=== PATIENT | female | born 1990 | race African-American/Black ===

== ENCOUNTER 2018-11-08 15:17 | Emergency (ER) | payer SELFPAY ==
[2018-11-08 15:56] LABS: Urine Bacteria 20-50 /HPF (<20); Urine Culture Reflex Order REFLEXED; Urine RBC <5 /HPF (NONE SEEN)
--- NOTE | 2018-11-08 16:09 | ER ---
Nurse's Notes [facility] Name: Laine Chaney Age: 27 yrs Sex: Female : 1990 Arrival Date: 11/08/2018 Time: 15:18 Bed 15 Private MD: Diagnosis: Herpesviral [herpes simplex] infections;Urinary tract infection, site not specified; state Presentation: 11/08 15:24 Presenting complaint: Patient states: vaginal pain, discharge, burning with urination la1 since friday. Transition of care: patient was not received from another setting of care. Onset of symptoms was November 08, 2018. Risk Assessment: Do you want to hurt yourself or someone else? Patient reports no desire to harm self or others. Initial Sepsis Screen: Does the patient meet any 2 criteria? No. Patient's initial sepsis screen is negative. Does the patient have a suspected source of infection? No. Patient's initial sepsis screen is negative. Care prior to arrival: None. 15:24 Method Of Arrival: Ambulatory la1 15:24 Acuity: DOC 4 la1 Triage Assessment: 16:27 General: Appears in no apparent distress. Behavior is calm. iw 16:28 Pain: Complains of pain in groin. iw PROSTHETIC DENTIST: 15:25 LMP 10/12/2018 la1 16:11 0, 0, Living 0, LMP 10/12/2018 kb Historical: - Allergies: 15:24 No Known Allergies; la1 - Home Meds: 15:24 None [Active]; la1 - PMHx: 15:24 None; la1 - PSHx: 15:24 None; la1 - Immunization history:: Adult Immunizations up to date. - Social history:: Smoking status: Patient/guardian denies using tobacco. - Ebola Screening: : No symptoms or risks identified at this time. Screenin:26 Abuse screen: Denies threats or abuse. Denies injuries from another. Nutritional iw screening: No deficits noted. Tuberculosis screening: No symptoms or risk factors identified. Fall Risk None identified. Assessment: 15:45 General: Appears in no apparent distress. comfortable, Behavior is calm, cooperative, aj1 appropriate for age. Pain: Complains of pain in pelvis. Neuro: Level of Consciousness is awake, alert, obeys commands, Oriented to person, place, time, situation. Cardiovascular: Patient's skin is warm and dry. Respiratory: Airway is patent Respiratory effort is even, unlabored, Respiratory pattern is regular, symmetrical. GI: No signs and/or symptoms were reported involving the gastrointestinal system. : Reports burning with urination, urinary frequency. EENT: No signs and/or symptoms were reported regarding the EENT system. Derm: No signs and/or symptoms reported regarding the dermatologic system. Skin is pink, warm \T\ dry. normal. Musculoskeletal: No signs and/or symptoms reported regarding the musculoskeletal system. Circulation, motion, and sensation intact. 16:26 Reassessment: Patient appears in no apparent distress at this time. Patient and/or iw family updated on plan of care and expected duration. Pain level reassessed. Patient is alert, oriented x 3, equal unlabored respirations, skin warm/dry/pink. Vital Signs: 15:25 BP 151 / 69; Pulse 82; Resp 16; Temp 98.1; Pulse Ox 98% on R/A; Weight 81.65 kg; Height la1 5 ft. 6 in. (167.64 cm); 15:25 Body Mass Index 29.05 (81.65 kg, 167.64 cm) la1 ED Course: 15:18 Patient arrived in ED. as 15:21 [facility] kb 15:21 Sukhdev Clifton MD is Attending Physician. kb 15:24 Triage completed. la1 15:25 Arm band placed on right wrist. la1 15:32 Norma Corbett, NASREEN is Primary Nurse. aj1 16:27 No provider procedures requiring assistance completed. iw 16:28 Patient has correct armband on for positive identification. iw 16:28 Patient did not have IV access during this emergency room visit. iw Administered Medications: 16:26 Drug: Valtrex 1000 mg Route: PO; iw 16:26 Drug: Macrobid 100 mg Route: PO; iw Outcome: 16:08 Discharge ordered by . kb 16:27 Discharged to home ambulatory. iw 16:27 Condition: good 16:27 Discharge instructions given to patient, Instructed on discharge instructions, follow up and referral plans. medication usage, Demonstrated understanding of instructions, follow-up care, medications, Prescriptions given X 2. 16:28 Patient left the ED. iw Signatures: Mara Lomas FNP-C FNP-Ckb Norma Corbett, RN RN aj1 Cora Agee Irene, RN RN iw Mulugeta Lee RN RN la1
--- NOTE | 2018-11-08 16:09 | EDPHYS ---
Physician [facility] Name: Laine Chaney Age: 27 yrs Sex: Female : 1990 Arrival Date: 11/08/2018 Time: 15:18 Bed 15 Private MD: ED Physician Sukhdev Clifton HPI: 11/08 16:09 This 27 yrs old Black Female presents to ER via Ambulatory with complaints of Vaginal kb Pain. 16:09 The patient presents with urinary symptoms, dysuria, Pt reports vaginal pain that is kb worse with urination. 16:11 Onset: The symptoms/episode began/occurred 3 day(s) ago. Modifying factors: The kb symptoms are alleviated by nothing, the symptoms are aggravated by urinating. Associated signs and symptoms: Pertinent positives: dysuria, vaginal pain . Severity of symptoms: At their worst the symptoms were moderate, in the emergency department the symptoms are unchanged. The patient is sexually active, reportedly has a single partner, does not use protection during intercourse. The patient has not experienced similar symptoms in the past. The patient has not recently seen a physician. EXPORT SPECIALIST: 15:25 LMP 10/12/2018 la1 16:11 0, 0, Living 0, LMP 10/12/2018 kb Historical: - Allergies: 15:24 No Known Allergies; la1 - Home Meds: 15:24 None [Active]; la1 - PMHx: 15:24 None; la1 - PSHx: 15:24 None; la1 - Immunization history:: Adult Immunizations up to date. - Social history:: Smoking status: Patient/guardian denies using tobacco. - Ebola Screening: : No symptoms or risks identified at this time. ROS: 16:04 Constitutional: Negative for fever, chills, and weight loss, Neck: Negative for injury, kb pain, and swelling, Cardiovascular: Negative for chest pain, palpitations, and edema, Respiratory: Negative for shortness of breath, cough, wheezing, and pleuritic chest pain, Abdomen/GI: Negative for abdominal pain, nausea, vomiting, diarrhea, and constipation, MS/Extremity: Negative for injury and deformity, Skin: Negative for injury, rash, and discoloration, Neuro: Negative for headache, weakness, numbness, tingling, and seizure. 16:04 : Positive for burning with urination, vaginal pain. Exam: 16:12 Constitutional: This is a well developed, well nourished patient who is awake, alert, kb and in no acute distress. Head/Face: Normocephalic, atraumatic. ENT: Nares patent. No nasal discharge, no septal abnormalities noted. Tympanic membranes are normal and external auditory canals are clear. Oropharynx with no redness, swelling, or masses, exudates, or evidence of obstruction, uvula midline. Mucous membranes moist. Neck: Trachea midline, no thyromegaly or masses palpated, and no cervical lymphadenopathy. Supple, full range of motion without nuchal rigidity, or vertebral point tenderness. No Meningismus. Chest/axilla: Normal chest wall appearance and motion. Nontender with no deformity. No lesions are appreciated. Cardiovascular: Regular rate and rhythm with a normal S1 and S2. No gallops, murmurs, or rubs. Normal PMI, no JVD. No pulse deficits. Respiratory: Lungs have equal breath sounds bilaterally, clear to auscultation and percussion. No rales, rhonchi or wheezes noted. No increased work of breathing, no retractions or nasal flaring. Abdomen/GI: Soft, non-tender, with normal bowel sounds. No distension or tympany. No guarding or rebound. No evidence of tenderness throughout. Skin: Warm, dry with normal turgor. Normal color with no rashes, no lesions, and no evidence of cellulitis. MS/ Extremity: Pulses equal, no cyanosis. Neurovascular intact. Full, normal range of motion. Neuro: Awake and alert, GCS 15, oriented to person, place, time, and situation. Cranial nerves II-XII grossly intact. Motor strength 5/5 in all extremities. Sensory grossly intact. Cerebellar exam normal. Normal gait. 16:12 : Pelvic Exam: External exam: herpes lesions noted, reveals ulcerations on external genitalia, no appreciated Bartholin's cyst, no erythema, not excoriated, no evidence of foreign body, the nurse was present for the exam. Vital Signs: 15:25 BP 151 / 69; Pulse 82; Resp 16; Temp 98.1; Pulse Ox 98% on R/A; Weight 81.65 kg; Height la1 5 ft. 6 in. (167.64 cm); 15:25 Body Mass Index 29.05 (81.65 kg, 167.64 cm) la1 MDM: 15:25 Patient medically screened. kb 16:06 Data reviewed: vital signs, nurses notes. Data interpreted: Pulse oximetry: on room air kb is 98 %. Interpretation: normal. Counseling: I had a detailed discussion with the patient and/or guardian regarding: the historical points, exam findings, and any diagnostic results supporting the discharge/admit diagnosis, lab results, the need for outpatient follow up, an OB/Gyne specialist, to return to the emergency department if symptoms worsen or persist or if there are any questions or concerns that arise at home. 16:13 ED course: Pt educated that urine tests show UTI and positive for . Pt also kb educated on physical exam findings consistent with herpes simplex. Pt educated to follow up with EXPORT SPECIALIST for all of these diagnoses. Verbal understanding of all instructions received. . 11/08 15:25 Order name: Urine Microscopic Only; Complete Time: 15:59 kb 11/08 15:47 Order name: Urine Dipstick--Ancillary (enter results) 11/08 15:48 Order name: Urine Dipstick-Ancillary [facility] 11/08 16:00 Order name: Urine Culture [facility] 11/08 15:25 Order name: Urine Test (obtain specimen); Complete Time: 15:53 kb 11/08 15:25 Order name: Urine Dipstick-Ancillary (obtain specimen); Complete Time: 15:53 kb Administered Medications: 16:26 Drug: Valtrex 1000 mg Route: PO; iw 16:26 Drug: Macrobid 100 mg Route: PO; Disposition: 11/09 10:28 Co-signature as Attending Physician, Sukhdev Clifton MD I agree with the assessment and sushma plan of care. Disposition: 11/08/18 16:08 Discharged to Home. Impression: Herpesviral [herpes simplex] infections, Urinary tract infection, site not specified, state. - Condition is Stable. - Discharge Instructions: Genital Herpes, and Genital Herpes, Urinary Tract Infection, Adult, [id number], and Urinary Tract Infection. - Prescriptions for Valtrex 1 g Oral Tablet - take 1 tablet by ORAL route every 12 hours for 10 days; 20 tablet. Macrobid 100 mg Oral Capsule - take 1 capsule by ORAL route every 12 hours for 7 days; 14 capsule. - Medication Reconciliation Form, Thank You Letter, Antibiotic Education, Prescription Opioid Use form. - Follow up: Emergency Department; When: As needed; Reason: Worsening of condition. Follow up: Private Physician; When: 2 - 3 days; Reason: Recheck today's complaints, Continuance of care, Re-evaluation by your physician. Signatures: Dispatcher [employer] EDOH Mara Lomas, ERNIE RENDON-Sukhdev Treviño MD MD cha Williams, Irene RN NASREEN iw Mulugeta Lee RN RN la1 Corrections: (The following items were deleted from the chart) 11/08 16:28 16:08 11/08/2018 16:08 Discharged to Home. Impression: Herpesviral [herpes simplex] iw infections; Urinary tract infection, site not specified; state. Condition is Stable. Prescriptions for Valtrex 1 g Oral Tablet - take 1 tablet by ORAL route every 12 hours for 10 days; 20 tablet. and Forms are Medication Reconciliation Form, Thank You Letter, Antibiotic Education, Prescription Opioid Use. Follow up: Emergency Department; When: As needed; Reason: Worsening of condition. Follow up: Private Physician; When: 2 - 3 days; Reason: Recheck today's complaints, Continuance of care, Re-evaluation by your physician. kb
[2018-11-08] MEDS ORDERED: NITROFURAN MACRO 100 MG CAP PO ONE (16:24)
[2018-11-08] MEDS ORDERED: VALACYCLOVIR 500 MG TAB ONE (16:24)
[2018-11-08 17:55] LABS: Urine Blood NEGATIVE (NEG); Urine Glucose NEGATIVE (NEG); Urine Protein NEGATIVE (NEG); Urine Specific Gravity >1.030 (1.005-1.030); Urine pH 5.5 (5.0-7.0)
== END 2018-11-08 16:28 | disposition home or self-care (01) ==
LOC: ER 15:17
DX: B00.9 Herpesviral infection, unspecified (principal); N39.0 Urinary tract infection, site not specified; Z33.1 Pregnant state, incidental
CPT/HCPCS: 81003; 81015; 87086; 87088; 99283

== ENCOUNTER 2023-11-27 13:37 | Emergency (ER) | payer OTHER, SELFPAY ==
[2023-11-27 14:40] LABS: Specific Gravity 1.021 (1.005-1.030)
[2023-11-27 14:41] LABS: Absolute Monocytes 0.3 K/uL (0.1-1.3); Absolute Neutrophil 1.9 K/uL (1.8-8.0); Basophils % 0.3 % (0-1.3); Eosinophils % 1.1 % (0-4.4); Hematocrit 39.1 % (36.0-45.0); Hemoglobin 12.6 g/dL (12.0-15.0); MCH 30.3 pg (27.0-35.0); MCHC 32.2 g/dL (32.0-36.0); MCV 93.9 fL (80-100); MPV 9.5 fL (7.6-11.3); Monocytes % 6.5 % (3.3-12.3); Neutrophils % 45.1 % (41.7-73.7); Platelets 200 thou/uL (152-406); RBC Red Blood Cell Count 4.16 M/uL (3.86-4.86); Red Cell Distribution Width 14.5 % (12.1-15.2)
[2023-11-27 14:45] LABS: Specific Gravity 1.021 (1.005-1.030); Sqamous Epithelial <5 /HPF (None Seen); Urine Bacteria None Seen /HPF (<20); Urine Bilirubin NEGATIVE (Negative); Urine Blood Negative (Negative); Urine Clarity Turbid (Clear); Urine Color Light-Yellow (Yellow); Urine Culture Reflex Order NOT NEEDED; Urine Glucose NEGATIVE (Negative); Urine Ketones NEGATIVE (Negative); Urine Microscopic Reflex YN ORDER UMIC; Urine Mucus Slight /HPF (None Seen); Urine Nitrite NEGATIVE (Negative); Urine Protein NEGATIVE (Negative); Urine RBC <5 /HPF (None Seen); Urine Urobilinogen Normal (Normal); Urine WBC <5 /HPF (<5)
[2023-11-27 14:53] LABS: Albumin 3.7 g/dL (3.4-5.0); Albumin/Globulin Ratio 1.1 (1.1-1.8); Anion Gap 5.7 mEq/L (5.0-15.0); Bilirubin Total 0.3 mg/dL (0.2-1.0); Globulin 3.4 g/dL (2.3-3.5); Potassium 3.7 mEq/L (3.5-5.1); Protein, Total 7.1 g/dL (6.4-8.2)
--- NOTE | 2023-11-27 15:53 | RAD REPORT ---
EXAM DESCRIPTION: CT - Abdomen Pelvis W Contrast - 11/27/2023 3:21 pm CLINICAL HISTORY: Abdominal pain COMPARISON: none. TECHNIQUE: Computed axial tomography of the abdomen pelvis was obtained. 100 cc Isovue-300 was admin istered intravenously. Oral contrast was not requested which limits evaluation of bowel and appendix All CT scans are performed using dose optimization technique as appropriate and may include automated exposure control or mA/KV adjustment according to patient size. FINDINGS: Multiple gallstones. The liver, spleen, pancreas, adrenal and kidneys appear unremarkable. There is no evidence of diverticulitis. Normal appendix No adnexal mass Mild diastases rectus abdominis muscle. Tiny umbilical hernia. Mild gastric distention IMPRESSION: Cholelithiasis Mild gastric distention
--- NOTE | 2023-11-27 16:06 | EDPHYS ---
Physician Documentation [facility] Name: Laine Chaney Age: 33 yrs Sex: Female : 1990 Arrival Date: 11/27/2023 Time: 13:37 Bed 10 Private MD: ED Physician Shmuel Martin HPI: 11/26 14:48 This 33 yrs old Black Female presents to ER via Ambulatory with complaints of stomach rn pain. 14:48 The patient presents with abdominal pain. Onset: The symptoms/episode began/occurred 4 rn day(s) ago. The symptoms do not radiate. Associated signs and symptoms: Pertinent positives: nausea, Pertinent negatives: blood in stools, chest pain, diarrhea, dysuria, fever, shortness of breath, vaginal discharge, vomiting, vomiting blood. The symptoms are described as crampy. Modifying factors: The symptoms are alleviated by nothing, the symptoms are aggravated by touching the area. Severity of pain: At its worst the pain was moderate in the emergency department the pain has improved. The patient has not experienced similar symptoms in the past. 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 - Infectious Disease History:: Denies. - Social history:: Smoking status: Patient/guardian denies using tobacco, Stopped _ months ago 2 Patient/guardian denies using alcohol. - Family history:: not pertinent. - Hospitalizations: : No recent hospitalization is reported. ROS: 14:48 Constitutional: Negative for fever, chills, and weight loss, Cardiovascular: Negative rn for chest pain, palpitations, and edema, Respiratory: Negative for shortness of breath, cough, wheezing, and pleuritic chest pain, Abdomen/GI: Positive for abdominal pain with nausea MS/Extremity: Negative for injury and deformity, Skin: Negative for injury, rash, and discoloration, Neuro: Negative for headache, weakness, numbness, tingling, and seizure, Exam: 14:48 Constitutional: This is a well developed, well nourished patient who is awake, alert, rn and in no acute distress. Cardiovascular: Regular rate and rhythm. No pulse deficits. Respiratory: No increased work of breathing, no retractions or nasal flaring. Abdomen/GI: Soft, mild epigastric and mid abdominal tenderness. No rebound or guarding. Negative [place]. Vital Signs: 14:01 BP 117 / 59; Pulse 65; Resp 17; Temp 98(O); Pulse Ox 100% on R/A; Weight 77.11 kg; tm6 Height 5 ft. 6 in. ; Pain 7/10; 16:15 BP 112 / 63; Pulse 66; Resp 18; Temp 97.4(O); Pulse Ox 99% on R/A; tl4 14:01 Body Mass Index 27.44 (77.11 kg, 167.64 cm) tm6 14:01 Pain Scale: Adult tm6 MDM: 13:41 Patient medically screened. rn 16:03 Differential diagnosis: appendicitis, bowel obstruction, cholecystitis, Cholelithiasis, rn diverticulitis, gastritis, gastroesophageal reflux disease, non-specific abd pain, pancreatitis, Peptic Ulcer Disease, Perf. Duodenal Ulcer, Perf. Gastric Ulcer. Data reviewed: vital signs, nurses notes, lab test result(s), radiologic studies, CT scan, and as a result, I will discharge patient. Counseling: I had a detailed discussion with the patient and/or guardian regarding the historical points, exam findings, and any diagnostic results supporting the discharge/admit diagnosis, lab results, radiology results, the need for outpatient follow up, to return to the emergency department if symptoms worsen or persist or if there are any questions or concerns that arise at home. Special discussion: Based on the patient's Hx, exam, and Dx evaluation, there is no indication for emergent surgery or inpatient Tx. It is understood by the patient/guardian that if the Sx's persist or worsen they need to return immediately for re-evaluation. I discussed with the patient/guardian in detail that at this point there is no indication for admission to the hospital. It is understood, however, that if the symptoms persist or worsen the patient needs to return immediately for re-evaluation. Based on the history and exam findings, there is no indication for further emergent testing or inpatient evaluation. I discussed with the patient/guardian the need to see the general surgeon for further evaluation of the symptoms. ED course: CT without acute findings. Shows cholelithiasis but patient not really having right upper quadrant pain. Shows mild stomach distention. Could be acid reflux versus gastritis versus cholelithiasis. Will discharge home with antacids and given return precautions. Will follow-up with general surgery to evaluate cholelithiasis.. 16:08 ED course: Patient feeling much better, denies any pain. Eating M\T\Ms.. rn 11/26 14:06 Order name: CBC with Diff; Complete Time: 14:58 rn 11/26 14:06 Order name: CMP; Complete Time: 14:58 rn 11/26 14:06 Order name: Lipase; Complete Time: 14:58 rn 11/26 14:06 Order name: Test, Urine; Complete Time: 14:58 rn 11/26 14:06 Order name: Urinalysis w/ reflexes; Complete Time: 14:58 rn 11/26 14:06 Order name: CT Abd/Pelvis - IV Contrast Only rn 11/26 14:06 Order name: IV Saline Lock; Complete Time: 14:28 rn 11/26 14:06 Order name: Labs collected and sent; Complete Time: 14:28 rn Administered Medications: No medications were administered Disposition Summary: 11/27/23 16:06 Discharge Ordered Notes: Location: Home rn Problem: new rn Symptoms: have improved rn Condition: Stable rn Diagnosis - Abdominal pain, unspecified rn - Other cholelithiasis without obstruction rn Followup: rn - With: Private Physician - When: As needed - Reason: Recheck today's complaints, Re-evaluation by your physician Discharge Instructions: - Discharge Summary Sheet rn - Abdominal Pain, Adult rn - Cholelithiasis rn Forms: - Medication Reconciliation Form rn - Antibiotic rim turning finisher - Prescription Opioid Use rn - Patient Portal Instructions rn - Leadership Thank You Letter rn Prescriptions: - Protonix 40 mg Oral Tablet - take 1 tablet ORAL route once daily; 30 tablet; Refills: 0, Product Selection rn Permitted Signatures: Dispatcher [employer] EDShmuel Sun MD MD rn Fiona Arnett RN RN tm6 Corrections: (The following items were deleted from the chart) 14:07 14:07 Abdomen Pelvis W Con+CT.RAD.BRZ ordered. EDMS EDMS
--- NOTE | 2023-11-27 16:06 | ER ---
Nurse's Notes [facility] Name: Laine Chaney Age: 33 yrs Sex: Female : 1990 Arrival Date: 11/27/2023 Time: 13:37 Bed 10 Private MD: Diagnosis: Abdominal pain, unspecified;Other cholelithiasis without obstruction Presentation: 11/26 14:02 Chief complaint: Patient states: stomach pain starting Friday night, it feels like tm6 contractions, like I'm having a baby. Having nausea but no vomiting. Coronavirus screen: Vaccine status: Patient reports being unvaccinated. Ebola Screen: Patient negative for fever greater than or equal to 101.5 degrees Fahrenheit, and additional compatible Ebola Virus Disease symptoms Patient denies exposure to infectious person. Patient denies travel to an Ebola-affected area in the 21 days before illness onset. No symptoms or risks identified at this time. Initial Sepsis Screen: Does the patient meet any 2 criteria? No. Patient's initial sepsis screen is negative. Does the patient have a suspected source of infection? No. Patient's initial sepsis screen is negative. Risk Assessment: Do you want to hurt yourself or someone else? Patient reports no desire to harm self or others. Onset of symptoms was November 23, 2023. 14:02 Method Of Arrival: Ambulatory tm6 14:02 Acuity: DOC 3 tm6 Triage Assessment: 14:03 General: Appears in no apparent distress. Behavior is calm, cooperative. Pain: tm6 Complains of pain in abdomen Pain does not radiate. Pain currently is 8 out of 10 on a pain scale. Quality of pain is described as sharp, Pain began 2-3 days ago. EENT: No signs and/or symptoms were reported regarding the EENT system. Neuro: Level of Consciousness is awake, alert, obeys commands, Oriented to person, place, time, situation. Cardiovascular: Patient's skin is warm and dry. Respiratory: Airway is patent Respiratory effort is even, unlabored, Respiratory pattern is regular, symmetrical. GI: Abdomen is round non-distended, Reports lower abdominal pain, upper abdominal pain, nausea. : No signs and/or symptoms were reported regarding the genitourinary system. Derm: No signs and/or symptoms reported regarding the dermatologic system. Musculoskeletal: No signs and/or symptoms reported regarding the musculoskeletal system. 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 - Infectious Disease History:: Denies. - Social history:: Smoking status: Patient/guardian denies using tobacco, Stopped _ months ago 2 Patient/guardian denies using alcohol. - Family history:: not pertinent. - Hospitalizations: : No recent hospitalization is reported. Screenin:14 [facility] ED Fall Risk Assessment (Adult) History of falling in the last 3 months, ll1 including since admission No falls in past 3 months (0 pts) Confusion or Disorientation No (0 pts) Intoxicated or Sedated No (0 pts) Impaired Gait No (0 pts) Mobility Assist Device Used No (0 pt) Altered Elimination No (0 pt) Score/Fall Risk Level 0 - 2 = Low Risk Maintained a safe environment, Hourly rounding (assess needs \T\ fall precautionary measures) done. Abuse screen: Denies threats or abuse. Nutritional screening: No deficits noted. Tuberculosis screening: No symptoms or risk factors identified. Assessment: 16:15 General: Appears in no apparent distress. Behavior is calm, cooperative, appropriate tl4 for age. Pain: Complains of pain in abdomen. Neuro: Level of Consciousness is awake, alert, obeys commands, Oriented to person, place, time, situation, Moves all extremities. Full function Speech is normal, Facial symmetry appears normal. Cardiovascular: Capillary refill < 3 seconds Patient's skin is warm and dry. Respiratory: Airway is patent Respiratory effort is even, unlabored, Respiratory pattern is regular, symmetrical. GI: Reports upper abdominal pain, nausea. : No signs and/or symptoms were reported regarding the genitourinary system. EENT: No signs and/or symptoms were reported regarding the EENT system. Derm: No signs and/or symptoms reported regarding the dermatologic system. Musculoskeletal: No signs and/or symptoms reported regarding the musculoskeletal system. Vital Signs: 14:01 BP 117 / 59; Pulse 65; Resp 17; Temp 98(O); Pulse Ox 100% on R/A; Weight 77.11 kg; tm6 Height 5 ft. 6 in. ; Pain 7/10; 16:15 BP 112 / 63; Pulse 66; Resp 18; Temp 97.4(O); Pulse Ox 99% on R/A; tl4 14:01 Body Mass Index 27.44 (77.11 kg, 167.64 cm) tm6 14:01 Pain Scale: Adult [facility] ED Course: 13:41 Patient arrived in ED. ra3 13:41 Shmuel Martin MD is Attending Physician. rn 14:03 Triage completed. tm6 14:03 Arm band placed on right wrist. tm6 14:14 Patient placed in an exam room, on a stretcher. 1 14:28 CBC with Diff Sent. 6 14:28 CMP Sent. [facility] 14:28 Lipase Sent. [facility] 14:28 Test, Urine Sent. [facility] 14:28 Urinalysis w/ reflexes Sent. [facility] 14:28 Initial lab(s) drawn, by la, sent to lab. Inserted saline lock: 20 gauge in right [facility] antecubital area, using aseptic technique. Blood collected. Flushed with 10 mL NS. 15:23 CT Abd/Pelvis - IV Contrast Only In Process Unspecified. EDMS 16:14 No provider procedures requiring assistance completed. IV discontinued, intact, tl4 bleeding controlled, No redness/swelling at site. Pressure dressing applied. 16:17 Patient has correct armband on for positive identification. Bed in low position. Call tl4 light in reach. Side rails up X 1. Provided Education on: call mcnulty. Administered Medications: No medications were administered Medication: 14:15 VIS not applicable for this client. ll1 Outcome: 16:06 Discharge ordered by . rn 16:17 Discharged to home ambulatory, tl4 16:17 Condition: stable 16:17 Discharge instructions given to patient, Instructed on discharge instructions, follow up and referral plans. medication usage, Demonstrated understanding of instructions, follow-up care, medications, Prescriptions given X 1, 16:21 Patient left the ED. tl4 Signatures: Dispatcher [employer] EDMS Shmuel Martin MD MD rn Lewis, Lynsay, RN RN ll1 Jodie Wright 6 Fiona Arnett RN RN 6 Amor Mehta RN RN tl4 Shelley Iraheta ra3
[2023-11-27 17:21] VITALS: BP 112/63; TEMP 97.4; O2SAT 99
== END 2023-11-27 16:21 | disposition home or self-care (01) ==
LOC: ER 13:37
DX: K80.80 Other cholelithiasis without obstruction (principal)
CPT/HCPCS: 36415; 74177; 80053; 81001; 81025; 83690; 85025; 99284; Q9967